=== PATIENT | female | born 1990 | race Two or more races ===

== ENCOUNTER 2017-12-13 08:32 | Emergency (ER) | payer SELFPAY ==
[2017-12-13 09:13] VITALS: TEMP 98.8; BMI 35.8
--- NOTE | 2017-12-13 11:26 | PDOC ---
History of Present Illness - General Chief Complaint: Vaginal Bleeding Stated Complaint: LIGHTHEADED Time Seen by Provider: 12/13/17 11:08 History Source: Patient - History of Present Illness Timing/Duration: reports: other Past History - Past Medical History Allergies/Adverse Reactions: Allergies Allergy/AdvReac Type Severity Reaction Status Date / Time No Known Allergies Allergy Verified 12/13/17 09:04 Anemia: Yes COPD: No - Suicide/Smoking/Psychosocial Hx Smoking History: Never smoked Have you smoked in the past 12 months: No Information on smoking cessation initiated: No Hx Alcohol Use: No Drug/Substance Use Hx: No Review of Systems - Review of Systems Constitutional: Yes: Weakness. No: Chills, Fever Respiratory: No: Shortness of Breath Cardiac (ROS): No: Chest Pain, Lightheadedness, Palpitations, Syncope ABD/GI: No: Abdominal cramping : No: Dysuria *Physical Exam - Vital Signs Last Vital Signs Temp Pulse Resp BP Pulse Ox 98.8 F 72 20 120/63 100 12/13/17 09:04 12/13/17 09:04 12/13/17 09:04 12/13/17 09:04 12/13/17 09:04 - Physical Exam General Appearance: Yes: Appropriately Dressed. No: Apparent Distress HEENT: positive: Normal Voice Neck: positive: Supple Respiratory/Chest: negative: Respiratory Distress Female Pelvic Exam: positive: normal adnexa, vaginal bleeding (moderate bleeding , no cervial polyps/lesion). negative: CMT, adnexal tenderness Gastrointestinal/Abdominal: positive: Soft. negative: Tender Integumentary: positive: Dry, Warm Neurologic: positive: Fully Oriented, Alert, Normal Mood/Affect ED Treatment Course - LABORATORY CBC & Chemistry Diagram: 12/13/17 12:00 12/13/17 12:00 Medical Decision Making - Medical Decision Making 12/13/17 11:23 7-year-old female, , anemia, status post multiple transfusions, here with heavy vaginal bleeding 2 weeks, currently using 5-6 pads in the 24 hour period. Also complaining of mild fatigue. No chest pain, shortness of breath, dizziness or syncope. Patient states she last gave March of 2017 and states she had not had a period until now. No abdominal pain. No history of fibroids or cysts See exam Menorrhagia w/ weakness Stable and well [place] w/ R/o vs worsening anemia -labs -dispo pending w/u 12/13/17 12:49 Labs and within normal limits. Trace leuks with 70 wbc on UA, no nitrites. Patient denies dysuria, frequency, flank pain, nausea or vomiting. Will hold off on antibiotics at this time and send urine culture. Regarding menorrhagia, patient given [facility] referral. Reasons to return discussed with patient 12/13/17 13:00 *DC/Admit/Observation/Transfer Diagnosis at time of Disposition: Menorrhagia Qualifiers: Menorrahagia type: with irregular cycle Qualified Code(s): N92.1 - Excessive and frequent menstruation with irregular cycle - Discharge Dispostion Disposition: HOME Condition at time of disposition: Good - Referrals Referrals: Sudeep Parkinson MD [Staff Physician] - - Patient Instructions Printed Discharge Instructions: DI for Menorrhagia Additional Instructions: tus anlisis de candace fueron normales hoy. No eres anmico segn tus laboratorios. Tu prueba de embarazo tambin fue negativa. Tendr que hacer un seguimiento con [facility] para pino evaluacin ms exhaustiva de por qu lr menstruaci n es [place] pesada. Si los sntomas empeoran significativamente, regrese a la sonia de emergencias. Print Language: SAMI - Post Discharge Activity
[2017-12-13] MEDS ORDERED: SODIUM CHLORIDE 1,000 ML IV STA (11:30)
[2017-12-13] MEDS ORDERED: SODIUM CHLORIDE 500 ML IV STA (11:34)
[2017-12-13 12:28] LABS: URINE APPEARANCE CLOUDY; URINE BILIRUBIN NEGATIVE (NEGATIVE); URINE BLOOD 3+ (NEGATIVE); URINE COLOR YELLOW; URINE GLUCOSE (UA) NEGATIVE (NEGATIVE); URINE KETONE NEGATIVE (NEGATIVE); URINE NITRITE NEGATIVE (NEGATIVE); URINE UROBILINOGEN NEGATIVE mg/dL (0.2-1.0)
[2017-12-13 12:30] LABS: BASO % 0.6 % (0-2.0); EOS % 2.9 % (0-4.5); HEMATOCRIT 34.3 % (32.4-45.2); INR 1.02 (0.82-1.09); LYMPH % 26.5 % (8-40); MCH 27.8 pg (25.7-33.7); MEAN CELL VOLUME 86.8 fl (80-96); MEAN PLT VOLUME 9.2 fl (7.5-11.1); MONO % 8.2 % (3.8-10.2); NEUT % 61.8 % (42.8-82.8); PLATELET COUNT 228 K/MM3 (134-434); PROTHROMBIN TIME (PATIENT) 11.5 SEC (9.98-11.88); RBC 3.95 M/mm3 (3.60-5.2); RDW 15.3 % (11.6-15.6); WHITE BLOOD COUNT 7.2 K/mm3 (4.0-10.0)
[2017-12-13 12:31] LABS: URINE LEUK ESTERASE 1+ (NEGATIVE); URINE PROTEIN 2+ (NEGATIVE)
[2017-12-13 12:33] LABS: ALBUMIN 3.5 g/dl (3.4-5.0); ALK PHOS 121 U/L (45-117); ANION GAP 3 (8-16); BILIRUBIN,TOTAL 0.4 mg/dL (0.2-1.0); BLOOD UREA NITROGEN 22 mg/dL (7-18); CALCIUM 8.1 mg/dL (8.5-10.1); CHLORIDE 106 mmol/L (98-107); CO2 29 mmol/L (21-32); CREATININE 0.5 mg/dL (0.55-1.02); GLUCOSE,RANDOM 83 mg/dL (74-106); SGPT/ALT 17 U/L (12-78); SODIUM 138 mmol/L (136-145); TOT PROT 7.4 g/dl (6.4-8.2)
[2017-12-13 12:35] LABS: POTASSIUM 4.3 mmol/L (3.5-5.1); SGOT/AST 14 U/L (15-37)
[2017-12-13 12:47] LABS: EPI CELLS MODERATE /HPF (FEW); URINE BACTERIA RARE /hpf (NONE SEEN)
[2017-12-13 13:10] VITALS: BP 107/67; PULSE 74
== END 2017-12-13 13:10 | disposition home or self-care (01) ==
LOC: JER 08:32
DX: N92.1 Excessive and frequent menstruation with irregular cycle (principal); D64.9 Anemia, unspecified
CPT/HCPCS: 36415; 80053; 81003; 81015; 84703; 85025; 85610; 86850; 86900; 86901; 87077; 87086; 99283-25